=== PATIENT | male | born 1965 | race Caucasian/White ===

== ENCOUNTER 2016-10-01 20:11 | Emergency (ER) | payer OTHER, MEDICAID ==
[2016-10-01 20:24] VITALS: BP 110/74; BMI 28.2
[2016-10-01] MEDS ORDERED: ROCEPHIN VIAL 1 GM IM ONE (21:08)
[2016-10-01] MEDS ORDERED: TORADOL 60 MG VIAL IM ONE (21:08)
[2016-10-01] MEDS ORDERED: DECADRON INJ IM ONE (21:11)
--- NOTE | 2016-10-01 21:12 | DR.GENAD ---
HPI - PCP Primary Care Physician: CAROLYN - HPI Comment HPI Comment: PAIN WORSE TONIGHT. NO DRAINAGE. TOOK ADVIL BEFORE COMING. - Complaint/Symptoms Chief Complaint Doctors Comments: FEVER, RIGHT EAR PAIN AND BODY ACHES TIMES 3 DAYS. Chief Complaint:: BODY ACHES HIGH TEMP EARACHE - Nurses notes reviewed Nurses Notes Review: Yes - Source History Provided: Patient - Mode of Arrival Mode of Arrival: Ambulatory - Timing Onset of Chief Complaint: 09/28/16 Came on: Gradually - Duration Duration: Constant Duration: Days - Severity Severity: Moderate PMH - PMH Past Medical History: Yes Past Medical History: Hypertension Past Surgical History: Yes Surgical History: Ortho Surgery Past Surgical History Comment: BACK NECK LEFT KNEE AND RIGHT WRIST SURGERIES - Family History History of Family Medical Conditions: Yes Family Medical History: Cancer, [place], Coronary Artery Disease, Hypertension - Social History Does patient currently use any type of tobacco product: Yes Have you used tobacco products in the last 12 months: Yes Type of Tobacco Use: Cigarettes Does any household member use tobacco: Yes Alcohol Use: None Do you use any recreational Drugs:: No Lives Where: Home - infectious screening In the last 2 months have you had wt loss of >10#?: NO Have you had fever, night sweats or hemotysis?: No Have you traveled outside the country in the last 6 months?: No Isolation: Standard ROS - Review of Systems Constitutional: Fever, Weakness, Fatigue. negative: Chills Eyes: No Symptoms Reported. negative: Eye Pain, Discharge ENTM: Ear Pain. negative: Ear Discharge, Hearing Loss, Nose Discharge, Nose Congestion, Throat Pain Respiratoy: No Symptoms Reported. negative: Productive Cough, Non-Productive Cough, Short of Breath, Wheezing, Hemoptysis Cardiovascular: No Symptoms Reported. negative: Chest Pain Gastrointestinal/Abdominal: No Symptoms Reported. negative: Abdominal Pain, Diarrhea, Nausea, Vomiting Genitourinary: No Symptoms Reported. negative: Dysuria, Frequency, Hematuria Neurological: Headache, Weakness, Dizziness Musculoskeletal: Muscle Pain Integumentary: No Symptoms Reported Hematologic/Lymphatic: No Symptoms Reported Endocrine: No Symptoms Reported All Other Systems: Reviewed and Negative PE - Vital Signs Vitals: Temperature 98.5 F Pulse Rate 118 Respiratory Rate 18 Blood Pressure [Right Arm] 137/89 Blood Pressure 110/74 O2 Sat by Pulse Oximetry 97 - General Limitations: No Limitations General Appearance: Alert - Head Head Exam: Normal Inspection - Eyes Eye exam: Normal Appearance - ENT ENT Exam: Normal External Ear Exam. negative: Normal Oropharynx, TM's Normal Bilaterally (TM HYPEREMIC RIGHT EAR, CANAL SLIGHTLY SWOLLEN AND RED.) TM/Canal Exam: Right Erythema, Right Canal Tenderness Nose Exam: Normal Nose Exam Mouth Exam: Normal Inspection Throat Exam: Normal Inspection - Neck Neck Exam: Normal Inspection - Chest Chest Inspection: Symmetric Chest Wall Rise - Respiratory Respiratory Exam: Normal Lung Sounds Bilat Respiratory Exam: Bilateral Clear to Auscultation - Cardiovascular Cardiovascular Exam: Regular Rate, Normal Rhythm, Normal Heart Sounds - Abdominal Exam Abdominal Exam: Normal Bowel Sounds, Soft. negative: Tenderness - Extremities Extremities Exam: Normal Inspection - Back Back Exam: Normal Inspection - Neurologic Neurological Exam: Alert, Oriented X3 - Psychiatric Psychiatric Exam: Anxious - Skin Skin Exam: Normal Color MDM - Differential Diagnosis Differential Diagnosis: RT OTITIS MEDIA. HEADACHE Course - Treatment Treatment: SEE ORDERS - Reevaluation 1st: Improved (PAIN) - Education/Counseling Education/Counseling: Patient, Education Educated On: Treatment, Diagnosis, Needs for Follow Up - Diagnosis Discharge Problem: Right acute otitis media - Discharge Plan Condition: Stable Prescriptions: Amoxicillin & Pot Clavulanate [AUGMENTIN TAB 875 mg/125 mg *] 1 tab PO BID #20 tab Ibuprofen [Motrin Tab 800 mg] 800 mg PO BID PRN #20 tab PRN Reason: Pain/Inflammation - Follow ups/Referrals Follow ups/Referrals: BOB LEON [Primary Care Provider] - 3 days - Instructions Instructions: Otitis Media, Adult, [id number] Additional Instructions: RETURN TO ED IF WORSE.
[2016-10-01] MEDS ORDERED: XYLOCAINE 1 % (PLAIN) ONE (21:16)
[2016-10-01] MEDS ORDERED: TORADOL 60 MG VIAL ONE (21:16)
[2016-10-01] MEDS ORDERED: ROCEPHIN VIAL 1 GM ONE (21:17)
[2016-10-01] MEDS ORDERED: DECADRON INJ ONE (21:17)
== END 2016-10-01 22:35 | disposition home or self-care (01) ==
LOC: ER 20:28
DX: H66.91 Otitis media, unspecified, right ear (principal)
CPT/HCPCS: 96372; 99282; J0696; J1100; J1885; J2001

== ENCOUNTER 2017-02-20 12:34 | Emergency (ER) | payer MEDICAID, OTHER ==
[2017-02-20 12:37] VITALS: BP 154/102; BMI 28.2
[2017-02-20] MEDS ORDERED: NORFLEX INJ IVP ONE (14:40)
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
[2017-02-20] MEDS ORDERED: TORADOL 60 MG VIAL IM ONE (14:42)
[2017-02-20] MEDS ORDERED: NORFLEX INJ IM ONE (14:47)
[2017-02-20] MEDS ORDERED: TORADOL 60 MG VIAL ONE (14:48)
[2017-02-20] MEDS ORDERED: NORFLEX INJ ONE (14:48)
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
== END 2017-02-20 16:05 | disposition home or self-care (01) ==
LOC: ER 12:42
DX: S73.101A Unspecified sprain of right hip, initial encounter (principal); Y33.XXXA Other specified events, undetermined intent, initial encounter; Y92.9 Unspecified place or not applicable
CPT/HCPCS: 73501; 96372; 99282; 99283; J1885; J2360

== ENCOUNTER 2017-08-11 15:04 | Emergency (ER) | payer OTHER, MEDICAID ==
[2017-08-11 15:08] VITALS: BP 160/16; BMI 27.4
--- NOTE | 2017-08-11 16:53 | DR.EXTPAIN ---
HPI - Time seen Time seen: 16:53 - PCP Primary Care Physician: Andrae LEON - Complaint/Symptoms Chief Complaint Doctor Comments: Patient states that he was injured while running after a dog; he fell and cut his left and injured his right wrist. He admits to pain of right wrist with ROM. Chief Complaint:: PT. C/O RIGHT WRIST PAIN AND CUT TO LEFT KNEE S/P FALL. - Source History Provided: Patient - Mode of arrival Mode of Arrival: Ambulatory - Timing Onset of Chief Complaint: 08/11/17 PMH - PMH Past Medical History: Yes Past Medical History: Hypertension Past Surgical History: Yes Surgical History: Ortho Surgery - Family History History of Family Medical Conditions: Yes Family Medical History: Cancer, [place], Coronary Artery Disease, Hypertension - Social History Does patient currently use any type of tobacco product: Yes Have you used tobacco products in the last 12 months: Yes Type of Tobacco Use: Cigarettes Does any household member use tobacco: No Alcohol Use: None Do you use any recreational Drugs:: No Lives With: Significant Other Lives Where: Home - infectious screening In the last 2 months have you had wt loss of >10#?: NO Have you had fever, night sweats or hemotysis?: No Have you traveled outside the country in the last 6 months?: No Isolation: Standard ROS - Review of Systems Eyes: No Symptoms Reported ENTM: No Symptoms Reported Respiratoy: No Symptoms Reported Cardiovascular: No Symptoms Reported Gastrointestinal/Abdominal: No Symptoms Reported Genitourinary: No Symptoms Reported Neurological: No Symptoms Reported Musculoskeletal: Wrist (right ), Knee (left inferior patella superficial laceration) Integumentary: See HPI, Lesions (as described.) Hematologic/Lymphatic: No Symptoms Reported Endocrine: No Symptoms Reported Psychiatric: No Symptoms Reported All Other Systems: Reviewed and Negative PE - Vital Signs Vitals: Temperature 97.7 F Pulse Rate 118 Respiratory Rate 20 Blood Pressure [Right Arm] 137/89 Blood Pressure 160/16 O2 Sat by Pulse Oximetry 100 - General Limitations: No Limitations General Appearance: Alert, In No Apparent Distress - Head Head Exam: Normal Inspection, Atraumatic - Eyes Eye exam: Normal Appearance, PERRL, EOMI - ENT ENT Exam: Normal Exam - Neck Neck Exam: Normal Inspection, Full ROM - Chest Chest Inspection: Normal Inspection - Respiratory Respiratory Exam: Normal Lung Sounds Bilat Respiratory Exam: Bilateral Clear to Auscultation - Cardiovascular Cardiovascular Exam: Regular Rate, Normal Rhythm - Abdominal Exam Abdominal Exam: Normal Inspection, Normal Bowel Sounds Abdominal Tenderness: negative: RUQ, RLQ, LUQ, LLQ, Epigastrium, Suprapubic, Diffuse, Mild, Moderate, Severe, Other - Extremities Extremities Exam: Normal Inspection, Full ROM - Upper Extremities Shoulder Exam: Normal Inspection Arm Exam: Normal Inspection Elbow Exam: Normal Inspection Forearm Exam: Normal Inspection, Full ROM Hand Exam: Normal Inspection Neuromotor Exam: Normal Exam Neurosensory Exam: Normal Exam Hand Tendon Exam: Flexor Digitorium Profundus (Location) Upper Ext. Vascular Exam: Capillary Refill. Denies: Radial Pulse, Ulnar Pulse, Brachial Pulse, Benson's Test, Other - Lower Extremities Hip/Pelvis Exam: Normal Inspection Upper Leg Exam: Normal Inspection Knee Exam: Other (abrasion of left inferior patella superficially) Lower Leg Exam: Normal Inspection Ankle Exam: Normal Inspection Foot/Toe Exam: Normal Inspection, Full ROM Neurovascular/Tendon Exam: Normal Capillary Refill Gait Exam: Observed and Normal - Back Back Exam: Normal Inspection, Full ROM - Neurological Neurological Exam: Alert, Oriented X3, CN II-XII Intact - Psychiatric Psychiatric Exam: Normal Affect - Skin Skin Exam: Warm, Dry. negative: Intact (Abrasion of inferior patella left) - Discharge Plan Condition: Stable - Follow ups/Referrals Follow ups/Referrals: BOB LEON [Primary Care Provider] - 3 days - Instructions
[2017-08-11] MEDS ORDERED: XYLOCAINE 1 % (PLAIN) ONE (18:14)
[2017-08-11] MEDS ORDERED: BACITRACIN ZINC ONE (18:42)
[2017-08-11] MEDS ORDERED: ADACEL TDaP IM ONE ×2 (18:43)
== END 2017-08-11 19:39 | disposition home or self-care (01) ==
LOC: ER 15:15
PROC: 0YQGXZZ Repair Left Knee Region, External Approach (ICD-10-PCS; principal; 2017-08-11)
DX: S81.012A Laceration without foreign body, left knee, initial encounter (principal); W19.XXXA Unspecified fall, initial encounter; W45.8XXA Other foreign body or object entering through skin, initial encounter; Y92.9 Unspecified place or not applicable
CPT/HCPCS: 12001; 73100; 90471; 99282; 99283; J2001

== ENCOUNTER 2020-04-14 18:46 | Observation (INO) ==
[2020-04-14 18:56] VITALS: BMI 29.0
--- NOTE | 2020-04-14 19:31 | CT ---
EXAM: HEAD CT WITHOUT INTRAVENOUS CONTRASTHISTORY: Sudden onset lower extremity weakness/paralysis. Evaluation for CVA.TECHNIQUE: Spiral axial CT images are obtained through the brain without the administration of intravenous contrast. Sagittal and coronal reformatted images are reconstructed.DOSIMETRY: Total DLP 1294.1 mGycm; CTDI 70.8 mGyCOMPARISON: Head CT dated 04/01/2020.FINDINGS:The centrum semiovale, basal ganglia, cerebellum, and brainstem are grossly unremarkable for a noncontrast CT scan. Atherosclerosis of the intracranial ICAs and vertebral arteries is seen.There is no acute intracranial hemorrhage, discernible acute infarction, mass lesion, midline shift, or hydrocephalus seen. No extra-axial mass or abnormal fluid collection is seen.The calvarium is intact. There is chronic right maxillary sinusitis marked by mucoperiosteal thickening and mucous retention cysts/polyps (partially imaged). The partially imaged paranasal sinuses, middle ear cavities, and mastoid air cells are otherwise clear.IMPRESSION:1. No intracranial hemorrhage, discernible acute infarction, mass lesions, midline shift, mass effect or hydrocephalus seen.2. Atherosclerosis of the intracranial ICAs and vertebral arteries is seen.3. Consider followup evaluation with MRI /MRA imaging to rule out occult early CVA as clinically warranted.4. Mild chronic right maxillary sinusitis.5. No significant interval change seen.Electronically signed by: Keely Mancia (Apr 14, 2020 19:30:06)
--- NOTE | 2020-04-14 20:20 | DR.GENAD ---
HPI Time Seen Time Seen by Provider: 04/14/20 18:57 PCP Primary Care Physician: kyrie HPI Comment HPI Comment: Patient presents with the complaint of "I was raking leaves in the yard, and then I couldn't walk." Complaint/Symptoms Chief Complaint:: pt states" I WAS RAKING YARDS AND I COULDN'T WALK IT HAPPENED AT 230 I COULDN'T GET ANYBODY TO COME GET ME AND BRING ME TO THE HOSPITAL. I COULD TALK BUT I COULDN'T WALK MY LT LEG WOULDN'T WORK" Source History Provided: Patient Mode of Arrival Mode of Arrival: Wheelchair Timing Onset of Chief Complaint: 04/14/20 PMH PMH Past Medical History: Yes Past Medical History: Coronary Artery Disease, Depression, Hypertension, [place] and Sleep Apnea Past Surgical History: Yes Surgical History: Ortho Surgery Family History History of Family Medical Conditions: Yes Family Medical History: Cancer, [place] and Hypertension Social History Does patient currently use any type of tobacco product: Yes Have you used tobacco products in the last 12 months: Yes Type of Tobacco Use: Cigarettes Does any household member use tobacco: Yes Alcohol Use: None Do you use any recreational Drugs:: Yes (THC) Lives With: Family Lives Where: Home Infectious screening In the last 2 months have you had wt loss of >10#?: NO Have you had fever, night sweats or hemotysis?: No Have you traveled outside the country in the last 6 months?: No Isolation: Standard ROS Review of Systems Constitutional: See HPI Neurological: Weakness All Other Systems: Reviewed and Negative PE Vital Signs Vitals: Temperature 98.1 F Pulse Rate 91 Respiratory Rate 18 Blood Pressure [Right Arm] 168/103 Blood Pressure 169/73 O2 Sat by Pulse Oximetry 99 General Limitations: No Limitations General Appearance: Alert and In No Apparent Distress Head Head Exam: Normal Inspection, Atraumatic and Normocephalic Eyes Eye exam: Normal Appearance and EOMI ENT ENT Exam: Normal Exam Neck Neck Exam: Normal Inspection and Trachea Midline Chest Chest Inspection: Normal Inspection and Symmetric Chest Wall Rise Respiratory Respiratory Exam: Normal Lung Sounds Bilat Respiratory Exam: Bilateral: Clear to Auscultation Cardiovascular Cardiovascular Exam: Regular Rate, Normal Rhythm and Normal Heart Sounds Abdominal Exam Abdominal Exam: Normal Inspection, Normal Bowel Sounds and Soft Extremities Extremities Exam: Normal Inspection Neurologic Neurological Exam: Alert, Oriented X3 and Other (LLE weakness 4/5 ) Psychiatric Psychiatric Exam: Normal Affect and Normal Mood COURSE Reevaluation 1st: Improved Consultation Called: 22:40 Call Returned: 23:43 Consultation Comments: Spoke with Dr. Peoples who accepts patient for admission for observation. [facility] Labs Reviewed Result Diagrams: 04/14/20 20:57 04/14/20 20:57 Laboratory: WBC 18.2 X10^3/uL (3.6-10.0) H 04/14/20 20:57 RBC 4.93 X10^6/uL (4.7-6.0) 04/14/20 20:57 Hgb 14.6 g/dL (13.5-18.0) 04/14/20 20:57 Hct 43.3 % (42.0-54.0) 04/14/20 20:57 MCV 87.8 fL (80.0-100.0) 04/14/20 20:57 MCH 29.6 pg (27.0-34.0) 04/14/20 20:57 MCHC 33.7 g/dL (33.0-35.0) 04/14/20 20:57 RDW 14.5 % (11.6-16.5) 04/14/20 20:57 Plt Count 599 X10^3/uL (150.0-450.0) H 04/14/20 20:57 MPV 7.6 fL (7.4-11.0) 04/14/20 20:57 Neut % (Auto) 81.8 % (42.0-75.0) H 04/14/20 20:57 Lymph % (Auto) 10.0 % (21.0-51.0) L 04/14/20 20:57 [place] % (Auto) 6.5 % (0.0-13.0) 04/14/20 20:57 Eos % (Auto) 1.2 % (0.9-2.9) 04/14/20 20:57 Baso % (Auto) 0.5 % (0.2-1.0) 04/14/20 20:57 Neut # (Auto) 14.9 x10^3/uL (2.2-4.8) H 04/14/20 20:57 Lymph # (Auto) 1.8 X10^3/uL (1.3-2.9) 04/14/20 20:57 [place] # (Auto) 1.2 x10^3/uL (0.3-0.8) H 04/14/20 20:57 Eos # (Auto) 0.2 x10^3/uL (0.0-0.2) 04/14/20 20:57 Baso # (Auto) 0.1 X10^3/uL (0.0-0.1) 04/14/20 20:57 Absolute Nucleated RBC 0.0 /100WBC 04/14/20 20:57 Sodium 139 mmol/L (136-145) 04/14/20 20:57 Corrected Sodium 140 mmol/L (136-145) 04/14/20 20:57 Potassium 4.0 mmol/L (3.5-5.1) 04/14/20 20:57 Chloride 103 mmol/L (98-107) 04/14/20 20:57 Carbon Dioxide 29.5 mmol/L (21-32) 04/14/20 20:57 BUN 21 mg/dL (7-18) H 04/14/20 20:57 Creatinine 1.04 mg/dL (0.70-1.30) 04/14/20 20:57 Est GFR (MDRD) Af Amer > 60 (>60) 04/14/20 20:57 Est GFR (MDRD) Non-Af > 60 (>60) 04/14/20 20:57 Glucose 129 mg/dL (65-99) H 04/14/20 20:57 Calcium 9.5 mg/dL (8.5-10.1) 04/14/20 20:57 Corrected Calcium TNP 04/14/20 20:57 Total Bilirubin 0.50 mg/dL (0.2-1.0) 04/14/20 20:57 AST 22 Units/L (15-37) 04/14/20 20:57 ALT 56 Units/L (12-78) 04/14/20 20:57 Alkaline Phosphatase 150 Units/L (46-116) H 04/14/20 20:57 Creatine Kinase 104 Units/L (39-308) 04/14/20 20:57 CK-MB (CK-2) 2.3 ng/mL (0-4.0) 12/18/20 20:57 CK/CKMB % Calc 2.2 % (<4) 04/14/20 20:57 Troponin I < 0.02 ng/mL (0-1.5) 04/14/20 20:57 Total Protein 6.8 g/dL (6.4-8.2) 04/14/20 20:57 Albumin 3.5 g/dL (3.4-5.0) 04/14/20 20:57 Globulin 3.3 g/dL (2.5-4.5) 04/14/20 20:57 Albumin/Globulin Ratio 1.1 Ratio (1.1-2.1) 04/14/20 20:57 XRAY X-ray Results: Name: YSABEL HARRIS : 1965 Sex: M Location: ER Order Number(s): [id number] Procedure(s):BRAIN W/O CON Ordering Physician: Zuri Pappas Primary Care: NFD,None Service Date: 04/14/20 Service Time: 1856 EXAM: HEAD CT WITHOUT INTRAVENOUS CONTRAST HISTORY: Sudden onset lower extremity weakness/paralysis. Evaluation for CVA. TECHNIQUE: Spiral axial CT images are obtained through the brain without the administration of intravenous contrast. Sagittal and coronal reformatted images are reconstructed. DOSIMETRY: Total DLP 1294.1 mGycm; CTDI 70.8 mGy COMPARISON: Head CT dated 04/01/2020. FINDINGS: The centrum semiovale, basal ganglia, cerebellum, and brainstem are grossly unremarkable for a noncontrast CT scan. Atherosclerosis of the intracranial ICAs and vertebral arteries is seen. There is no acute intracranial hemorrhage, discernible acute infarction, mass lesion, midline shift, or hydrocephalus seen. No extra-axial mass or abnormal fluid collection is seen. The calvarium is intact. There is chronic right maxillary sinusitis marked by mucoperiosteal thickening and mucous retention cysts/polyps (partially imaged). The partially imaged paranasal sinuses, middle ear cavities, and mastoid air cells are otherwise clear. IMPRESSION: 1. No intracranial hemorrhage, discernible acute infarction, mass lesions, midline shift, mass effect or hydrocephalus seen. 2. Atherosclerosis of the intracranial ICAs and vertebral arteries is seen. 3. Consider followup evaluation with MRI /MRA imaging to rule out occult early CVA as clinically warranted. 4. Mild chronic right maxillary sinusitis. 5. No significant interval change seen. Electronically signed by: Keely Mancia (Apr 14, 2020 19:30:06) Report Electronically signed: 04/14/201930 CC: Zuri Pappas MD Opioid Opioid Risk Tool Age (Herminio box if 16-45): No History of Preadolescent Sexual Abuse: No Total: 0 Total Score Risk Category: Low Risk Copyright: Neo BROWN predicting aberrant behaviors Diagnosis Discharge Problem: Brain TIA
[2020-04-14 21:16] LABS: BASOPHILS # (AUTO) 0.1 X10^3/uL (0.0-0.1); BASOPHILS % (AUTO) 0.5 % (0.2-1.0); EOSINOPHILS # (AUTO) 0.2 x10^3/uL (0.0-0.2); EOSINOPHILS % (AUTO) 1.2 % (0.9-2.9); HEMATOCRIT 43.3 % (42.0-54.0); HEMOGLOBIN 14.6 g/dL (13.5-18.0); LYMPHOCYTES # (AUTO) 1.8 X10^3/uL (1.3-2.9); MEAN CORPUSCULAR HEMOGLOBIN 29.6 pg (27.0-34.0); MEAN CORPUSCULAR HGB CONC 33.7 g/dL (33.0-35.0); MEAN CORPUSCULAR VOLUME 87.8 fL (80.0-100.0); MEAN PLATELET VOLUME 7.6 fL (7.4-11.0); MONOCYTES # (AUTO) 1.2 x10^3/uL (0.3-0.8); MONOCYTES % (AUTO) 6.5 % (0.0-13.0); NEUTROPHILS # (AUTO) 14.9 x10^3/uL (2.2-4.8); NEUTROPHILS % (AUTO) 81.8 % (42.0-75.0); PLATELET COUNT 599 X10^3/uL (150.0-450.0); RED BLOOD COUNT 4.93 X10^6/uL (4.7-6.0); RED CELL DISTRIBUTION WIDTH 14.5 % (11.6-16.5); WHITE BLOOD COUNT 18.2 X10^3/uL (3.6-10.0)
[2020-04-14 21:36] LABS: BLOOD UREA NITROGEN 21 mg/dL (7-18); CALCIUM 9.5 mg/dL (8.5-10.1); CARBON DIOXIDE 29.5 mmol/L (21-32); CHLORIDE 103 mmol/L (98-107); COR NA(FOR HYPERGLY) 140 mmol/L (136-145); CREATININE 1.04 mg/dL (0.70-1.30); SODIUM 139 mmol/L (136-145); TROPONIN I < 0.02 ng/mL (0-1.5); eGFR NON BLACK RACES > 60 (>60)
[2020-04-14 21:40] LABS: ALANINE AMINOTRANSFERASE 56 Units/L (12-78); ALBUMIN 3.5 g/dL (3.4-5.0); ALKALINE PHOSPHATASE 150 Units/L (46-116); ASPARTATE AMINO TRANSFERASE 22 Units/L (15-37); CKMB % 2.2 % (<4); CREATINE KINASE 104 Units/L (39-308); CREATINE KINASE MB 2.3 ng/mL (0-4.0); TOTAL PROTEIN 6.8 g/dL (6.4-8.2)
[2020-04-14] MEDS ORDERED: NS 1000 ML 1,000 ML ONE (23:53)
[2020-04-15] MEDS: NS 1000 ML 1,000 ML IV SCH ×4 (00:06→18:28)
[2020-04-15 00:50] LABS: CKMB % 1.7 % (<4); CREATINE KINASE 112 Units/L (39-308); CREATINE KINASE MB 1.9 ng/mL (0-4.0); TROPONIN I < 0.02 ng/mL (0-1.5)
[2020-04-15 04:16] LABS: BASOPHILS # (AUTO) 0.1 X10^3/uL (0.0-0.1); EOSINOPHILS # (AUTO) 0.4 x10^3/uL (0.0-0.2); EOSINOPHILS % (AUTO) 3.6 % (0.9-2.9); HEMATOCRIT 42.7 % (42.0-54.0); HEMOGLOBIN 14.4 g/dL (13.5-18.0); LYMPHOCYTES # (AUTO) 3.3 X10^3/uL (1.3-2.9); LYMPHOCYTES % (AUTO) 28.8 % (21.0-51.0); MEAN CORPUSCULAR HEMOGLOBIN 29.6 pg (27.0-34.0); MEAN CORPUSCULAR HGB CONC 33.8 g/dL (33.0-35.0); MEAN CORPUSCULAR VOLUME 87.5 fL (80.0-100.0); MEAN PLATELET VOLUME 7.6 fL (7.4-11.0); MONOCYTES # (AUTO) 1.1 x10^3/uL (0.3-0.8); MONOCYTES % (AUTO) 9.7 % (0.0-13.0); NEUTROPHILS # (AUTO) 6.6 x10^3/uL (2.2-4.8); NEUTROPHILS % (AUTO) 56.9 % (42.0-75.0); PLATELET COUNT 571 X10^3/uL (150.0-450.0); RED BLOOD COUNT 4.88 X10^6/uL (4.7-6.0); RED CELL DISTRIBUTION WIDTH 14.3 % (11.6-16.5); WHITE BLOOD COUNT 11.5 X10^3/uL (3.6-10.0)
[2020-04-15 04:34] LABS: ALANINE AMINOTRANSFERASE 52 Units/L (12-78); ALBUMIN 3.1 g/dL (3.4-5.0); ALKALINE PHOSPHATASE 136 Units/L (46-116); ASPARTATE AMINO TRANSFERASE 21 Units/L (15-37); BLOOD UREA NITROGEN 19 mg/dL (7-18); CARBON DIOXIDE 26.2 mmol/L (21-32); CHLORIDE 106 mmol/L (98-107); CKMB % 2.4 % (<4); COR CA(FOR HYPOALB) 9.7 mg/dL (8.5-10.1); COR NA(FOR HYPERGLY) 140 mmol/L (136-145); CREATINE KINASE 79 Units/L (39-308); CREATINE KINASE MB 1.9 ng/mL (0-4.0); SODIUM 140 mmol/L (136-145); TOTAL PROTEIN 6.4 g/dL (6.4-8.2); TROPONIN I < 0.02 ng/mL (0-1.5); eGFR NON BLACK RACES > 60 (>60)
[2020-04-15 04:43] LABS: BAND NEUTROPHILS % 2 % (0-10); PLATELET MORPHOLOGY COMMENT NORMAL (NORMAL)
[2020-04-15] MEDS ORDERED: NS 1000 ML 1,000 ML ONE (04:49)
--- NOTE | 2020-04-15 11:30 | DR.H&P ---
H&P - History & Physical for Day of: H&P Date: 04/14/20 - Chief Complaint Chief Complaint: ACUTE WEAKNESS - History of Present Illness History of Present Illness: PT IS 55M ER ADMISSION WITH CO I WAS RAKING YARDS AND I COULDN'T WALK IT HAPPENED AT 230 I COULDN'T GET ANYBODY TO COME GET ME AND BRING ME TO THE HOSPITAL. "I COULD TALK BUT I COULDN'T WALK MY LT LEG WOULDN'T WORK" PT HAS PMH OF HTN, OA. PT HAD CT HEAD ON ADMISSION RO ACUTE CVA VS TIA. - Past Medical History Past Medical History: [place], Coronary Artery Disease, Hypertension, Depression, Sleep Apnea - Past Surgical History Surgical History: Ortho Surgery - Family History Family Medical History: Cancer, [place], Hypertension - Social History Does patient currently use any type of tobacco product: Yes Have you used tobacco products in the last 12 months: Yes Type of Tobacco Use: Cigarettes Does any household member use tobacco: Yes Alcohol Use: None - Medications Home Medications: naproxen Allergy (Verified 12/24/17 12:06) quetiapine [From Seroquel] Allergy (Verified 12/24/17 12:06) CONTINUE taking the following medications cetirizine [Zyrtec] 10 mg PO HS 04/15/20 [History] - Review of Systems Constitutional: Weakness Eyes: No Symptoms Reported ENT: No Symptoms Reported Respiratory: No Symptoms Reported Cardiovascular: No Symptoms Reported Gastrointestinal: No Symptoms Reported Genitourinary: No Symptoms Reported Musculoskeletal: No Symptoms Reported Skin: No Symptoms Reported Neurological: Weakness - Physical Exam Vital Signs: Temperature 98.1 F Pulse Rate [Left Radial] 76 Pulse Rate 91 Respiratory Rate 18 Blood Pressure [Right Arm] 128/80 Blood Pressure 169/73 O2 Sat by Pulse Oximetry 97 Oriented: Normal Eyes: Normal Ear: Normal Nose: Normal Throat: Normal Respiratory: RLL Diminished, LLL Diminished Cardiovascular: Normal : Normal Auscultation: Bowel Sounds: Normal Palpation: Normal Tenderness: Normal Skin: Normal Musculoskeletal: Normal Psychiatric: Normal Mood Description: Calm Speech Pattern: Clear, Appropriate - Assessment/Plan (1) Brain TIA Status: Acute Plan: ADMIT, CT HEAD ON ADMISSION IN ER. BP CONTROL, SERIAL CE AND EKG. CXR ON ADMISSION, UA (2) Essential hypertension Status: Acute - Allergies Allergies/Adverse Reactions: Allergies Allergy/AdvReac Type Severity Reaction Status Date / Time naproxen Allergy Verified 12/24/17 12:06 quetiapine [From Seroquel] Allergy Verified 12/24/17 12:06
--- NOTE | 2020-04-15 11:31 | RAD ---
HISTORYAMSSTUDYPortable AP [id number] normal heart size with clear lungs and pleural spaces. The re is slight elevation of the right hemidiaphragm.IMPRESSIONNo significant interval change or acute c hest abnormality demonstrated.Electronically signed by: PROMISE VELASCO (Apr 15, 2020 11:30:34)
[2020-04-15 12:21] LABS: CREATINE KINASE 66 Units/L (39-308); CREATINE KINASE MB 1.3 ng/mL (0-4.0); TROPONIN I < 0.02 ng/mL (0-1.5)
[2020-04-15] MEDS: ROCEPHIN VIAL 1 GRAM 1 G in NS 100 ML IV + SPIKE MINIBAG* 100 ML IV SCH (13:31)
[2020-04-15] MEDS: NICOTINE PATCH TD SCH (13:31)
[2020-04-15] MEDS ORDERED: NS 100 ML IV 100 ML IV ONE (15:02)
[2020-04-15 17:04] LABS: BILIRUBIN,URINE NEGATIVE (NEGATIVE); BLOOD/HEMOGLOBIN,URINE NEGATIVE (NEGATIVE); GLUCOSE, URINE NEGATIVE (NEGATIVE); KETONES,URINE NEGATIVE (NEGATIVE); LEUKOCYTE ESTERASE ,URINE NEGATIVE (NEGATIVE); NITRITES,URINE NEGATIVE (NEGATIVE); PROTEIN,URINE NEGATIVE (NEGATIVE); UROBILINOGEN,URINE NORMAL (NORMAL)
[2020-04-15 17:06] LABS: APPEARANCE,URINE CLEAR (CLEAR); COLOR,URINE YELLOW (YELLOW)
--- NOTE | 2020-04-15 17:08 | CT ---
HISTORYLEFT SIDED WEAKNESS hypertension with a history of seizures.STUDYCAROTID CTACOMPARISONHead CT 04/14/2020TECHNIQUEMultiple CT axial images of the neck were obtained after using IV contrast. 3D reconstructions utilizing axial MIPS imaging was performed and reviewed. Dose reduction techniques including Automated Exposure Control (AEC) and adjustment of mA and kV were utilized.Stenoses are measured using NASCET criteria.FINDINGSThe pulmonary artery and aorta have a normal caliber. Vascular calcifications are present compatible with atherosclerosis. The usual 3 vessel anatomy is present off the aortic arch. No stenosis at the origins of the great vessels. There is no subclavian artery or proximal axillary artery stenosis.Right common carotid artery is widely patent. There is calcified and noncalcified plaque disease involving the medial, posterior, and lateral flowers of the right carotid bulb. However, this does not cause any significant degree of carotid stenosis. Cervical segment right internal carotid artery is patent to the skullbase. It is very tortuous at the skullbase.Left common carotid artery is widely patent. Minimal calcified and noncalcified plaque is present along the lateral wall and the posterior wall of the left carotid bulb. No significant carotid bulb stenosis. Cervical segment left internal carotid artery is patent to the skullbase. It is also very tortuous at the skullbase. There is minimal narrowing of the distal left ICA as it courses posterior to the calcified styloid process and anterior to the transverse process of C1. This may cause an impingement syndrome depending on Head position.Left vertebral artery slightly larger than the right. No vertebral artery occlusion.Minimal paraseptal emphysema noted in the upper lungs. Normal thyroid. No mass or significant lymphadenopathy.IMPRESSION1. Bilateral carotid bulb plaque disease, right side more than left.2. No significant carotid bulb stenosis3. Findings suggesting impingement of the distal left ICA between the styloid process and C1 transverse processElectronically signed by: Bharathi Amaral (Apr 15, 2020 17:07:26)
[2020-04-16] MEDS: NS 1000 ML 1,000 ML IV SCH (05:29)
[2020-04-16 06:37] LABS: BASOPHILS # (AUTO) 0.1 X10^3/uL (0.0-0.1); BASOPHILS % (AUTO) 0.9 % (0.2-1.0); EOSINOPHILS # (AUTO) 0.4 x10^3/uL (0.0-0.2); EOSINOPHILS % (AUTO) 4.2 % (0.9-2.9); HEMATOCRIT 41.2 % (42.0-54.0); HEMOGLOBIN 13.8 g/dL (13.5-18.0); LYMPHOCYTES # (AUTO) 2.6 X10^3/uL (1.3-2.9); LYMPHOCYTES % (AUTO) 25.2 % (21.0-51.0); MEAN CORPUSCULAR HEMOGLOBIN 29.6 pg (27.0-34.0); MEAN CORPUSCULAR HGB CONC 33.6 g/dL (33.0-35.0); MEAN CORPUSCULAR VOLUME 88.1 fL (80.0-100.0); MONOCYTES # (AUTO) 0.9 x10^3/uL (0.3-0.8); MONOCYTES % (AUTO) 8.3 % (0.0-13.0); NEUTROPHILS # (AUTO) 6.3 x10^3/uL (2.2-4.8); NEUTROPHILS % (AUTO) 61.4 % (42.0-75.0); PLATELET COUNT 580 X10^3/uL (150.0-450.0); RED BLOOD COUNT 4.68 X10^6/uL (4.7-6.0); RED CELL DISTRIBUTION WIDTH 14.4 % (11.6-16.5); WHITE BLOOD COUNT 10.3 X10^3/uL (3.6-10.0)
[2020-04-16 06:57] LABS: ALANINE AMINOTRANSFERASE 44 Units/L (12-78); ALKALINE PHOSPHATASE 128 Units/L (46-116); ASPARTATE AMINO TRANSFERASE 21 Units/L (15-37); BLOOD UREA NITROGEN 13 mg/dL (7-18); CALCIUM 8.5 mg/dL (8.5-10.1); CARBON DIOXIDE 24.3 mmol/L (21-32); CHLORIDE 107 mmol/L (98-107); COR CA(FOR HYPOALB) 9.3 mg/dL (8.5-10.1); SODIUM 140 mmol/L (136-145); TOTAL PROTEIN 6.1 g/dL (6.4-8.2); eGFR NON BLACK RACES > 60 (>60)
[2020-04-16] MEDS: NICOTINE PATCH TD SCH (08:01)
[2020-04-16] MEDS: ROCEPHIN VIAL 1 GRAM 1 G in NS 100 ML IV + SPIKE MINIBAG* 100 ML IV SCH (08:02)
[2020-04-16 08:42] VITALS: BP 139/85
[2020-04-16 11:25] LABS: CHOL/HDL RATIO 4.4 (0.0-5.0)
== END 2020-04-16 10:20 | disposition left against medical advice (07) ==
LOC: OBS 18:47 → ER 18:47 → OBS 04-15 00:57 → MED/SURG 04-15 09:58
PROVIDERS: ADMIT Internal Medicine; ATTEND Internal Medicine
DX: R94.31 Abnormal electrocardiogram [ECG] [EKG]; R53.1 Weakness; J01.80 Other acute sinusitis; Z20.828 Contact with and (suspected) exposure to other viral communicable diseases; I25.10 Atherosclerotic heart disease of native coronary artery without angina pectoris; I10 Essential (primary) hypertension; K62.89 Other specified diseases of anus and rectum; Z53.29 Procedure and treatment not carried out because of patient's decision for other reasons; G45.8 Other transient cerebral ischemic attacks and related syndromes; F15.90 Other stimulant use, unspecified, uncomplicated